=== PATIENT | female | born 1990 | race Caucasian/White ===

== ENCOUNTER 2018-02-01 18:02 | Emergency (ER) | payer SELFPAY ==
[~2018-02-01] VITALS: Ht 160 cm; Wt 58.2 kg
[~2018-02-01 18:02] MED LIST: ADDERALL20 MG PO; BACTRIM DS 8001 TAB PO; BIRTH CONTROL IMPLAN; CLEOCIN HCL300 MG PO; DEPAKOTE 125MG125 M1 PO; FERROUS SU325 MG/TAB PO; GEODON 20 MG20 MG PO; HYDRALAZINE HCL25 MG PO; MEDROL 4MG DOSPA4 MG PO; MOTRIN 600600 MG/TAB PO; NO HOME MEDICATIONS; NORCO 325 MG-51 TAB PO; PAXIL 20MG20 MG PO; PERCOCET 325 MG1 TA2 PO; PRENATAL VITAMI1 TA5 PO; PRENATAL VITAMI1 TAB PO; PRENATAL1 TA1 PO; PRENATAL1 TA3 PO; PROAIR HFA0.09 MG/AC IH; PROVENTIL0.09 MG/A1 IH
[2018-02-01 18:04] VITALS: BP 140/70; TEMP 98.3
[2018-02-01] MEDS ORDERED: DULERA1 ARO IH (18:08)
[2018-02-01] MEDS ORDERED: IBU800 M1 PO (18:30)
[2018-02-01 18:51] VITALS: PULSE 79
== END 2018-02-01 18:52 | disposition home or self-care (01) ==
LOC: COL.ER 18:02
DX: M25.552 Pain in left hip (principal); F17.210 Nicotine dependence, cigarettes, uncomplicated; Z23 Encounter for immunization; Z88.0 Allergy status to penicillin; Z88.1 Allergy status to other antibiotic agents; Z98.51 Tubal ligation status; Z98.890 Other specified postprocedural states; Z79.51 Long term (current) use of inhaled steroids; X58.XXXA Exposure to other specified factors, initial encounter
CPT/HCPCS: J1885

== ENCOUNTER 2018-03-09 20:50 | Emergency (ER) | payer SELFPAY ==
[~2018-03-09] VITALS: Ht 160 cm; Wt 59.1 kg
[~2018-03-09 20:50] MED LIST changes: +DULERA1 ARO IH; +IBU800 M1 PO
[2018-03-09] MEDS ORDERED: VENTOLIN0.09 MG IH (21:08)
[2018-03-09] MEDS ORDERED: FLEXERIL5 MG PO (21:08)
[2018-03-09 21:09] VITALS: BP 111/81; PULSE 103; TEMP 98.5
[2018-03-09] MEDS ORDERED: PREDNISONE20 MG PO (21:53)
== END 2018-03-09 21:59 | disposition home or self-care (01) ==
LOC: COL.ER 20:50
DX: M54.32 Sciatica, left side (principal); M54.10 Radiculopathy, site unspecified; F17.210 Nicotine dependence, cigarettes, uncomplicated
CPT/HCPCS: J7512

== ENCOUNTER 2018-06-13 14:43 | Emergency (ER) | payer MEDICAID ==
[~2018-06-13] VITALS: Ht 160 cm; Wt 62.3 kg
[~2018-06-13 14:43] MED LIST changes: +FLEXERIL5 MG PO; +PREDNISONE20 MG PO; +VENTOLIN0.09 MG IH
[2018-06-13 14:47] VITALS: TEMP 99.1
[2018-06-13 15:07] LABS: COLLECTION METHOD CLEAN CATCH
[2018-06-13 15:18] LABS: MUCOUS Present /lpf; PH 5 (5-8); SQUAMOUS EPITHELIAL 0-2 /hpf; URINE APPEARANCE Hazy; URINE BACTERIA Occasional /hpf; URINE BILIRUBIN Negative (NEGATIVE); URINE BLOOD Negative (NEGATIVE); URINE COLOR Yellow; URINE GLUCOSE Negative (NEGATIVE); URINE KETONE Negative (NEGATIVE); URINE LEUKOCYTE ESTERASE Negative (NEGATIVE); URINE NITRATE Positive (NEGATIVE); URINE PROTEIN(semi-quant) Negative (NEGATIVE); URINE RBC 0-2 /hpf; URINE UROBILINOGEN Negative (NEGATIVE)
[2018-06-13 15:30] LABS: BASO # 0.1 (0.0-0.2); BASO % 0.8 % (0.0-2.0); EOS # 0.2 (0.0-0.7); EOS % 2.2 % (0-4.0); GRAN % 68.9 % (42.2-75.2); HEMATOCRIT 32.7 % (37.0-47.0); HEMOGLOBIN 11.1 g/dl (12.5-16.0); LYMPH # 1.7 (1.2-3.4); LYMPH % 23.3 % (20.0-51.0); MEAN CELL VOLUME 91 fl (80.0-100.0); MEAN CORPUSCULAR HEMOGLOBIN 31 pg (27.0-31.0); MEAN CORPUSCULAR HGB CONC 34 g/dl (33.0-37.0); MEAN PLATELET VOLUME 9.7 fl (7.4-10.4); MONO # 0.3 (0.1-0.6); MONO % 4.7 % (1.7-9.3); PLATELET COUNT 257 K/mm3 (130-400); RED BLOOD COUNT 3.61 M/mm3 (4.10-5.30); REDCELL DISTRIBUTION WIDTH-CV 13.4 % (11.5-14.5)
[2018-06-13 15:39] LABS: ALANINE AMINOTRANSFERASE 23 U/L (9-52); ALBUMIN 3.8 gm/dL (3.5-5.0); ALKALINE PHOSPHATASE 65 U/L (50-136); ANION GAP 11 mmol/L (7-16); AST,SGOT 25 U/L (15-37); BILIRUBIN,TOTAL < 0.1 mg/dL (0.0-1.0); BLOOD UREA NITROGEN 11 mg/dL (7-17); CALCIUM 8.9 mg/dL (8.4-10.2); CARBON DIOXIDE 27 mmol/L (22-30); CHLORIDE 105 mmol/L (98-107); CREATININE, serum 0.66 mg/dL (0.52-1.25); GLUCOSE 98 mg/dL (74-106); LIPASE 36 U/L (23-300); POTASSIUM 3.5 mmol/L (3.4-5.0); SODIUM 142 mmol/L (137-145); TOTAL PROTEIN 6.7 gm/dL (6.4-8.2)
[2018-06-13] MEDS ORDERED: CARAFATE 1GM1 G PO (16:24)
[2018-06-13] MEDS ORDERED: PROTONIX 40MG T40 MG PO (16:24)
[2018-06-13 16:49] VITALS: BP 110/70; PULSE 70
== END 2018-06-13 16:45 | disposition home or self-care (01) ==
LOC: COL.ER 14:43
PROVIDERS: Emergency Medicine
DX: R10.12 Left upper quadrant pain (principal); J45.909 Unspecified asthma, uncomplicated; F32.9 Major depressive disorder, single episode, unspecified; K21.9 Gastro-esophageal reflux disease without esophagitis; Z98.51 Tubal ligation status; F17.210 Nicotine dependence, cigarettes, uncomplicated; Z88.0 Allergy status to penicillin
CPT/HCPCS: C9113; J1885; J2405; J7030

== ENCOUNTER 2018-06-20 18:02 | Emergency (ER) | payer MEDICAID ==
[~2018-06-20] VITALS: Ht 160 cm; Wt 62.3 kg
[~2018-06-20 18:02] MED LIST changes: +CARAFATE 1GM1 G PO; +PROTONIX 40MG T40 MG PO
[2018-06-20 18:08] VITALS: TEMP 98.9
[2018-06-20] MEDS ORDERED: CLEOCIN HCL300 MG PO ×2 (19:15→19:51)
[2018-06-20 19:52] VITALS: BP 131/67; PULSE 70
== END 2018-06-20 19:52 | disposition home or self-care (01) ==
LOC: COL.ER 18:02
DX: K02.9 Dental caries, unspecified (principal); J45.909 Unspecified asthma, uncomplicated; F32.9 Major depressive disorder, single episode, unspecified; F41.9 Anxiety disorder, unspecified; Z88.0 Allergy status to penicillin

== ENCOUNTER 2018-11-19 17:22 | Emergency (ER) | payer MEDICAID ==
[~2018-11-19] VITALS: Ht 160 cm; Wt 60.5 kg
[2018-11-19 17:35] VITALS: BP 126/74; PULSE 75; TEMP 98.6
[2018-11-19] MEDS ORDERED: PREDNISONE20 MG PO (17:57)
== END 2018-11-19 18:09 | disposition home or self-care (01) ==
LOC: COL.ER 17:22
DX: M77.9 Enthesopathy, unspecified (principal)
CPT/HCPCS: J7512

== ENCOUNTER 2019-07-07 18:27 | Emergency (ER) | payer SELFPAY ==
[~2019-07-07] VITALS: Ht 160 cm; Wt 59.1 kg
[2019-07-07 18:34] VITALS: BP 120/87; TEMP 98.9
[2019-07-07] MEDS ORDERED: DULERA1 ARO IH (18:55)
[2019-07-07] MEDS ORDERED: VENTOLIN0.09 MG IH (18:55)
[2019-07-07 19:59] VITALS: PULSE 16
[2019-07-08] MEDS ORDERED: DULERA1 ARO IH (15:28)
[2019-07-08] MEDS ORDERED: NORCO 325 MG-51 TAB PO (16:01)
== END 2019-07-07 20:03 | disposition home or self-care (01) ==
LOC: COL.ER 18:27
DX: S60.221A Contusion of right hand, initial encounter (principal); J45.909 Unspecified asthma, uncomplicated; F17.210 Nicotine dependence, cigarettes, uncomplicated; W22.8XXA Striking against or struck by other objects, initial encounter

== ENCOUNTER 2019-07-08 14:49 | Emergency (ER) | payer SELFPAY ==
[~2019-07-08] VITALS: Ht 160 cm; Wt 56.8 kg
[2019-07-08 15:01] VITALS: BP 125/78; PULSE 84; TEMP 98.8
[2019-07-08] MEDS ORDERED: DULERA1 ARO IH (15:28)
[2019-07-08] MEDS ORDERED: NORCO 325 MG-51 TAB PO (16:01)
== END 2019-07-08 16:00 | disposition home or self-care (01) ==
LOC: COL.ER 14:49
DX: S62.306A Unspecified fracture of fifth metacarpal bone, right hand, initial encounter for closed fracture (principal); J45.909 Unspecified asthma, uncomplicated; W22.8XXA Striking against or struck by other objects, initial encounter; F17.210 Nicotine dependence, cigarettes, uncomplicated

== ENCOUNTER 2019-08-19 14:42 | Emergency (ER) | payer SELFPAY ==
[~2019-08-19] VITALS: Ht 160 cm; Wt 58.6 kg
[2019-08-19 14:50] VITALS: BP 133/85; TEMP 98.4
[2019-08-19 16:00] VITALS: PULSE 72
== END 2019-08-19 16:00 | disposition home or self-care (01) ==
LOC: COL.ER 14:42
DX: S61.212A Laceration without foreign body of right middle finger without damage to nail, initial encounter (principal); S61.214A Laceration without foreign body of right ring finger without damage to nail, initial encounter; S61.216A Laceration without foreign body of right little finger without damage to nail, initial encounter; S60.221A Contusion of right hand, initial encounter; Z23 Encounter for immunization; W22.09XA Striking against other stationary object, initial encounter; Y92.410 Unspecified street and highway as the place of occurrence of the external cause

== ENCOUNTER 2019-09-30 15:59 | Emergency (ER) | payer SELFPAY ==
[~2019-09-30] VITALS: Ht 160 cm; Wt 59.1 kg
[2019-09-30 16:23] VITALS: BP 130/82; TEMP 98.9
[2019-09-30 16:54] VITALS: PULSE 85
== END 2019-09-30 16:54 | disposition home or self-care (01) ==
LOC: COL.ER 15:59
DX: S06.0X1A Concussion with loss of consciousness of 30 minutes or less, initial encounter (principal); W19.XXXA Unspecified fall, initial encounter

== ENCOUNTER 2020-11-11 17:00 | Emergency (ER) | payer MEDICAID ==
[~2020-11-11] VITALS: Ht 160 cm; Wt 59.1 kg
[~2020-11-11 17:00] MED LIST changes: +00186-0370-20 IH
[2020-11-11 17:12] VITALS: TEMP 98.1
[2020-11-11 18:30] VITALS: BP 119/78; PULSE 66
== END 2020-11-11 18:30 | disposition home or self-care (01) ==
LOC: COL.ER 17:00
DX: S63.617A Unspecified sprain of left little finger, initial encounter (principal); F17.210 Nicotine dependence, cigarettes, uncomplicated; Z88.0 Allergy status to penicillin; Z88.1 Allergy status to other antibiotic agents; Z79.51 Long term (current) use of inhaled steroids; W19.XXXA Unspecified fall, initial encounter

== ENCOUNTER 2020-11-19 12:53 | Emergency (ER) | payer MEDICAID ==
[~2020-11-19] VITALS: Ht 160 cm; Wt 61.4 kg
[2020-11-19 13:11] VITALS: BP 150/82; TEMP 98.2
[2020-11-19 14:43] VITALS: PULSE 77
== END 2020-11-19 14:44 | disposition home or self-care (01) ==
LOC: COL.ER 12:53
DX: R04.9 Hemorrhage from respiratory passages, unspecified (principal); J45.909 Unspecified asthma, uncomplicated; F17.200 Nicotine dependence, unspecified, uncomplicated; Z88.0 Allergy status to penicillin; Z88.1 Allergy status to other antibiotic agents; Z79.51 Long term (current) use of inhaled steroids

== ENCOUNTER → 2021-02-07 | Outpatient (CLI) | payer MEDICAID ==
[~2021-02-07] MED LIST changes: +LEXAPRO 5MG5 MG PO
== END ==
LOC: COL.RAD 16:02
DX: M25.572 Pain in left ankle and joints of left foot (principal)

== ENCOUNTER 2021-05-19 19:21 | Emergency (ER) | payer MEDICAID ==
[~2021-05-19] VITALS: Ht 160 cm; Wt 62.3 kg
[~2021-05-19 19:21] MED LIST changes: -LEXAPRO 5MG5 MG PO
[2021-05-19] MEDS ORDERED: LEXAPRO 5MG5 MG PO (21:54)
[2021-05-20 04:13] VITALS: BP 142/91; PULSE 95; TEMP 98.9
== END 2021-05-20 01:57 | disposition home or self-care (01) ==
LOC: COL.ER 19:21
DX: S00.83XA Contusion of other part of head, initial encounter (principal); J45.909 Unspecified asthma, uncomplicated; Z79.51 Long term (current) use of inhaled steroids; F17.290 Nicotine dependence, other tobacco product, uncomplicated; F17.210 Nicotine dependence, cigarettes, uncomplicated; W51.XXXA Accidental striking against or bumped into by another person, initial encounter

== ENCOUNTER 2021-05-23 09:37 | Emergency (ER) | payer MEDICAID ==
[~2021-05-23] VITALS: Ht 160 cm; Wt 61.4 kg
[~2021-05-23 09:37] MED LIST changes: +LEXAPRO 5MG5 MG PO
[2021-05-23 09:56] VITALS: TEMP 99.1
[2021-05-23 11:02] VITALS: BP 124/68; PULSE 87
== END 2021-05-23 11:10 | disposition home or self-care (01) ==
LOC: COL.ER 09:37
DX: S93.601A Unspecified sprain of right foot, initial encounter (principal); F10.129 Alcohol abuse with intoxication, unspecified; J45.909 Unspecified asthma, uncomplicated; Z79.51 Long term (current) use of inhaled steroids; X58.XXXA Exposure to other specified factors, initial encounter